=== PATIENT | female | born 1970 | race Caucasian/White ===

== ENCOUNTER 2016-10-30 06:07 | Emergency (ER) | payer OTHER ==
[~2016-10-30] VITALS: Ht 162.6 cm; Wt 70.2 kg
[~2016-10-30 06:07] MED LIST: ABILIFY5 MG PO; ADDERALL XR 2020 MG PO; ADDERALL20 MG PO; ALEVE220 MG PO; ALPRAZOLAM ER1 MG PO; AMBIEN5 MG PO; ATARAX,VISTARIL25 MG PO; Adderall PO; Ambien PO; Atarax,Vistaril PO; Augmentin PO; BUSPAR10 MG PO; BUSPAR30 MG PO; Benadryl PO; Buspar PO; CELEXA20 MG PO; CELEXA40 MG PO; CLEOCIN300 MG PO; CLINDAMYCIN HC150 MG PO; CLINDAMYCIN HC300 MG PO; DAILY VALUE1 EACH PO; Diflucan PO; ENDOCET 5-3251 EACH PO; ESCITALOPRAM OX10 MG PO; HYDROCODON-ACE1 EAC7 PO; HYDROXYZINE PAM25 MG PO; Habitrol,Nicoderm CQ TD; KEFLEX250 MG; KENALOG,ARISTOC15 G2 TP; KLONOPIN0.5 M1 PO; KLONOPIN1 MG PO; Kenalog 0.1% Cream TP; Levaquin PO; Lexapro PO; METHADONE; METHADONE10 MG/1 M1 PO; Methadone HCl PO; NAPROSYN500 MG PO; PROBIOTIC1 EAC1 PO; PROTONIX40 MG PO; SUBOXONE 8 M1 TABLET PO; THORAZINE50 MG PO; TYLENOL EXTRA500 MG PO; VENTOLIN HFA18 GM IH; VICODIN 5-3001 EACH PO; VISTARIL50 M1 PO; VITAMIN D32000 UNI1 PO; XANAX XR1 MG PO; Xanax PO; ZOLPIDEM TARTRAT5 MG; ZOLPIDEM TARTRAT5 MG PO; methadone PO
[2016-10-30 07:00] LABS: EOSINOPHIL (%) 0 % (0-5); HEMATOCRIT 42.5 % (36.0-46.0); IMMATURE GRANULOCYTE (%) 1.3 % (0.0-0.7); IMMATURE GRANULOCYTE COUNT 0.2 K/uL; INSTRUMENT ABS NEUTROPHIL CT 12.2 K/uL; LYMPHOCYTE COUNT 0.7 K/uL (1.0-2.8); MCH 30.1 PG (29.0-34.0); MCHC 34.1 G/DL (30.0-36.0); MCV 88.2 FL (83-99); MEAN PLAT.VOLUME 10.1 uM^3 (9.5-12.4); MONOCYTE (%) 5.7 % (3-12); MONOCYTE COUNT 0.8 K/uL (0-0.8); NEUTROPHIL (%) 87.9 % (45-76); NEUTROPHIL COUNT 12.2 K/uL (1.8-6.4); PLATELET COUNT 175 K/uL (156-360); RBC DIS.WIDTH-CV 13.4 % (11.8-14.6); RBC DIS.WIDTH-SD 43.8 % (39-53); RED BLOOD COUNT 4.82 M/uL (3.80-5.20); WHITE BLOOD COUNT 13.9 K/uL (4.1-10.2)
[2016-10-30 07:20] LABS: ANION GAP 10 MEQ/L (2-14); CHLORIDE 102 MEQ/L (99-109); POTASSIUM 3.6 MEQ/L (3.7-5.4); SAMPLE HEMOLYSIS CHECK 0; SAMPLE ICTERIC CHECK 0; SAMPLE LIPEMIA CHECK 0; SODIUM 133 MEQ/L (136-147); TOTAL BILIRUBIN 1.6 MG/DL (0.0-1.0)
[2016-10-30 07:21] LABS: INTER. NORMALIZED RATIO 1.1; PROTHROMBIN TIME 11.1 (9.2-11.2)
[2016-10-30 07:26] LABS: ALKALINE PHOSPHATASE 47 IU/L (3-129); GFR ESTIMATE (CALCULATED) > 59 mL/min/; GLUCOSE 117 mg/dL (70-99); LIPASE 8 U/L (1.0-51.0); UREA NITROGEN (BUN) 9 mg/dL (9-23)
[2016-10-30 08:42] LABS: ADD MIUA? YES; BILIRUBIN NEGATIVE; BLOOD LARGE; COLOR YELLOW ((YELLOW)); GLUCOSE (STRIP) NEGATIVE; KETONES NEGATIVE; LEUKOCYTES MODERATE; NITRITE NEGATIVE; PROTEIN (STRIP) 30
[2016-10-30 08:49] LABS: BACTERIA NONE SEEN /HPF; EPITHELIAL CELLS 1+ /HPF; MUCUS NONE SEEN /LPF; RED BLOOD CELLS TNTC /HPF (0-5)
[2016-10-30 09:03] LABS: SPECIFIC GRAVITY 1.056 (1.000-1.030)
[2016-10-30] MEDS ORDERED: BENTYL20 MG PO (09:26)
[2016-10-30] MEDS ORDERED: KEFLEX500 MG PO (09:26)
[2016-10-30] MEDS ORDERED: ZOFRAN ODT4 MG PO (09:27)
[2016-10-30 09:48] VITALS: BP 113/70
== END 2016-10-30 10:06 | disposition home or self-care (01) ==
LOC: EME → EDBD 06:07 → EME 10:06
PROVIDERS: Emergency Medicine
DX: K52.9 Noninfective gastroenteritis and colitis, unspecified (principal); F32.9 Major depressive disorder, single episode, unspecified; Z88.1 Allergy status to other antibiotic agents; Z88.2 Allergy status to sulfonamides; Z91.040 Latex allergy status; F17.200 Nicotine dependence, unspecified, uncomplicated
CPT/HCPCS: 74177; 80053; 81003; 83690; 85025; 85610; 99281; 99285; J7030

== ENCOUNTER 2016-12-04 08:22 | Day surgery (SDC) | payer OTHER ==
[~2016-12-04] VITALS: Ht 165.1 cm; Wt 65.9 kg
[~2016-12-04 08:22] MED LIST changes: +BENTYL20 MG PO; +KEFLEX500 MG PO; +ZOFRAN ODT4 MG PO
[2016-12-04 09:13] VITALS: BP 101/68
[2016-12-04] MEDS ORDERED: PERCOCET 5/31 TABLET PO (11:06)
[2016-12-04 11:54] VITALS: BP 127/55
[2016-12-04 12:54] VITALS: BP 111/68
[2016-12-04 14:39] VITALS: BP 115/69
== END 2016-12-04 15:05 | disposition home or self-care (01) ==
LOC: SDC 08:22
PROC: 0FT44ZZ Resection of Gallbladder, Percutaneous Endoscopic Approach (ICD-10-PCS; principal; 2016-12-04)
DX: K80.10 Calculus of gallbladder with chronic cholecystitis without obstruction (principal); D13.5 Benign neoplasm of extrahepatic bile ducts; F41.8 Other specified anxiety disorders; R16.2 Hepatomegaly with splenomegaly, not elsewhere classified; F11.21 Opioid dependence, in remission; F17.210 Nicotine dependence, cigarettes, uncomplicated; Z86.19 Personal history of other infectious and parasitic diseases; Z85.41 Personal history of malignant neoplasm of cervix uteri; Z85.828 Personal history of other malignant neoplasm of skin; Z88.0 Allergy status to penicillin; Z82.49 Family history of ischemic heart disease and other diseases of the circulatory system; Z80.7 Family history of other malignant neoplasms of lymphoid, hematopoietic and related tissues
CPT/HCPCS: 87641; 88304; J0131; J0690; J1100; J1170; J2250; J2405; J2710; J2765; J3010

== ENCOUNTER 2017-06-03 06:52 | Emergency (ER) | payer OTHER ==
[~2017-06-03] VITALS: Ht 160 cm; Wt 74.6 kg
[~2017-06-03 06:52] MED LIST changes: +PERCOCET 5/31 TABLET PO
[2017-06-03 08:01] LABS: HEMATOCRIT 42.3 % (36.0-46.0); HEMOGLOBIN 14.3 G/DL (11.9-15.5); MCH 30.4 PG (29.0-34.0); MCHC 33.8 G/DL (30.0-36.0); PLATELET COUNT 163 K/uL (156-360); RBC DIS.WIDTH-CV 13.7 % (11.8-14.6); RBC DIS.WIDTH-SD 45.3 % (39-53); WHITE BLOOD COUNT 4.2 K/uL (4.1-10.2)
[2017-06-03 08:19] LABS: ALBUMIN 3.8 g/dL (3.2-4.8)
[2017-06-03 08:20] LABS: CHLORIDE 106 mEq/L (99-109); POTASSIUM 4.4 mEq/L (3.7-5.4); SODIUM 136 mEq/L (136-147)
[2017-06-03 08:22] LABS: GLUCOSE 99 mg/dL (70-99); TOTAL PROTEIN 7.6 g/dL (6.4-8.3)
[2017-06-03 08:25] LABS: ALKALINE PHOSPHATASE 47 IU/L (3-129); QUANTITATIVE HCG < 4.0 MIU/ML
[2017-06-03 08:26] LABS: CREATININE 0.8 mg/dL (0.6-1.3); GFR ESTIMATE (CALCULATED) > 59 mL/min/
[2017-06-03 08:27] LABS: AST (GOT) 33 IU/L (2-34); UREA NITROGEN (BUN) 18 mg/dL (9-23)
[2017-06-03 08:28] LABS: ALT (GPT) 33 IU/L (3-49)
[2017-06-03 08:30] LABS: BILIRUBIN NEGATIVE; BLOOD NEGATIVE; COLOR YELLOW ((YELLOW)); GLUCOSE (STRIP) NEGATIVE; KETONES NEGATIVE; LEUKOCYTES NEGATIVE; NITRITE NEGATIVE; PROTEIN (STRIP) NEGATIVE; SPECIFIC GRAVITY 1.025 (1.000-1.030)
[2017-06-03 08:31] LABS: APPEARANCE CLEAR ((CLEAR)); UCUL ADDED? NO
[2017-06-03 08:52] LABS: TOTAL BILIRUBIN 0.3 mg/dL (0.0-1.0)
[2017-06-03 08:56] LABS: LIPASE 48 U/L (1.0-51.0)
[2017-06-03] MEDS ORDERED: ZOFRAN ODT4 MG PO (09:42)
[2017-06-03] MEDS ORDERED: STOOL SOFTENER250 MG PO (09:45)
[2017-06-03 10:17] VITALS: BP 99/54
== END 2017-06-03 10:17 | disposition home or self-care (01) ==
LOC: EME 06:52
DX: R11.2 Nausea with vomiting, unspecified (principal); K42.9 Umbilical hernia without obstruction or gangrene; Z90.49 Acquired absence of other specified parts of digestive tract; Z86.14 Personal history of Methicillin resistant Staphylococcus aureus infection; F17.200 Nicotine dependence, unspecified, uncomplicated
CPT/HCPCS: 76705; 80053; 81003; 83690; 84702; 85027; 99281; 99283

== ENCOUNTER → 2017-06-24 | Outpatient (CLI) | payer OTHER ==
[~2017-06-24] MED LIST changes: +STOOL SOFTENER250 MG PO
== END | disposition home or self-care (01) ==
LOC: CDC 13:41
DX: Z01.810 Encounter for preprocedural cardiovascular examination (principal); K43.9 Ventral hernia without obstruction or gangrene; R00.1 Bradycardia, unspecified
CPT/HCPCS: 93000

== ENCOUNTER 2017-06-25 11:02 | Day surgery (SDC) | payer OTHER ==
[~2017-06-25] VITALS: Ht 162.6 cm; Wt 75.8 kg
[2017-06-25 11:52] VITALS: BP 105/68
[2017-06-29] MEDS ORDERED: KEFLEX500 MG PO (16:27)
[2017-06-29] MEDS ORDERED: ZOFRAN4 MG PO (16:28)
== END 2017-06-25 12:30 | disposition home or self-care (01) ==
LOC: SDC
DX: K43.9 Ventral hernia without obstruction or gangrene (principal); Z53.09 Procedure and treatment not carried out because of other contraindication; R21 Rash and other nonspecific skin eruption; R07.9 Chest pain, unspecified
CPT/HCPCS: 87641; J1100; J2250; J2405; J3010

== ENCOUNTER 2017-06-30 11:38 | Day surgery (SDC) | payer OTHER ==
[~2017-06-30] VITALS: Ht 165.1 cm; Wt 80.5 kg
[~2017-06-30 11:38] MED LIST changes: +ZOFRAN4 MG PO
[2017-06-30 12:03] VITALS: BP 99/52
[2017-06-30] MEDS ORDERED: ULTRAM50 MG PO ×2 (13:57→14:00)
[2017-06-30 16:00] VITALS: BP 130/94
[2017-06-30 16:58] VITALS: BP 129/73
[2017-06-30 19:16] VITALS: BP 140/73
[2017-06-30 20:03] VITALS: BP 136/75
[2017-06-30 22:57] VITALS: BP 109/62
[2017-07-01 04:35] VITALS: BP 100/58
[2017-07-01 07:45] VITALS: BP 116/60
== END 2017-07-01 10:05 | disposition home or self-care (01) ==
LOC: SDC 11:38 → ENRESERV 18:57 → 2SOUTH 18:58 → ENRESERV 19:12 → 2EAST 19:35
PROC: 0WUF4JZ Supplement Abdominal Wall with Synthetic Substitute, Percutaneous Endoscopic Approach (ICD-10-PCS; principal; 2017-06-30)
DX: K42.0 Umbilical hernia with obstruction, without gangrene (principal); R11.0 Nausea; B18.2 Chronic viral hepatitis C; Z86.19 Personal history of other infectious and parasitic diseases; Z86.14 Personal history of Methicillin resistant Staphylococcus aureus infection; F17.200 Nicotine dependence, unspecified, uncomplicated; F11.20 Opioid dependence, uncomplicated; Z80.8 Family history of malignant neoplasm of other organs or systems; Z80.7 Family history of other malignant neoplasms of lymphoid, hematopoietic and related tissues; Z84.89 Family history of other specified conditions; Z88.1 Allergy status to other antibiotic agents; Z91.040 Latex allergy status
CPT/HCPCS: C1781; G0378; J0330; J0690; J1170; J1885; J2250; J2405; J3010

== ENCOUNTER → 2017-10-01 | Outpatient (CLI) | payer OTHER ==
[~2017-10-01] MED LIST changes: +ULTRAM50 MG PO
== END | disposition home or self-care (01) ==
LOC: RAD 12:26
DX: R76.11 Nonspecific reaction to tuberculin skin test without active tuberculosis (principal)
CPT/HCPCS: 71046

== ENCOUNTER 2017-11-23 12:49 | Emergency (ER) | payer OTHER ==
[~2017-11-23] VITALS: Ht 162.6 cm; Wt 69.6 kg
[2017-11-23 13:51] LABS: HEMATOCRIT 36.2 % (36.0-46.0); HEMOGLOBIN 12.8 G/DL (11.9-15.5); MCH 30.8 PG (29.0-34.0); MCHC 35.4 G/DL (30.0-36.0); PLATELET COUNT 163 K/uL (156-360); RBC DIS.WIDTH-SD 41.6 % (39-53); RED BLOOD COUNT 4.16 M/uL (3.80-5.20); WHITE BLOOD COUNT 5.4 K/uL (4.1-10.2)
[2017-11-23 13:58] LABS: ALBUMIN 3.9 g/dL (3.2-4.8); CHLORIDE 105 mEq/L (99-109); POTASSIUM 3.6 mEq/L (3.7-5.4); SODIUM 136 mEq/L (136-147)
[2017-11-23 14:00] LABS: GLUCOSE 120 mg/dL (70-99); TOTAL PROTEIN 7.8 g/dL (6.4-8.3)
[2017-11-23 14:02] LABS: TOTAL BILIRUBIN 0.6 mg/dL (0.0-1.0)
[2017-11-23 14:04] LABS: ALKALINE PHOSPHATASE 48 IU/L (3-129); CREATININE 0.8 mg/dL (0.6-1.3); GFR ESTIMATE (CALCULATED) > 59 mL/min/
[2017-11-23 14:05] LABS: UREA NITROGEN (BUN) 17 mg/dL (9-23)
[2017-11-23 14:06] LABS: AST (GOT) 56 IU/L (2-34)
[2017-11-23 14:07] LABS: ALT (GPT) 39 IU/L (3-49)
[2017-11-23 15:54] LABS: APPEARANCE SL.HAZY ((CLEAR)); BILIRUBIN NEGATIVE; BLOOD NEGATIVE; COLOR YELLOW ((YELLOW)); GLUCOSE (STRIP) NEGATIVE; KETONES NEGATIVE; LEUKOCYTES SMALL; NITRITE NEGATIVE; PROTEIN (STRIP) 30; SPECIFIC GRAVITY 1.021 (1.000-1.030)
[2017-11-23 16:03] LABS: BACTERIA RARE /HPF; CALCIUM OXALATE CRYSTALS 2+ /HPF; EPITHELIAL CELLS 1+ /HPF; MUCUS TRACE /LPF; RED BLOOD CELLS 0-5 /HPF (0-5); UCUL ADDED? NO; WHITE BLOOD CELLS 0-5 /HPF (0-5)
[2017-11-23 17:38] VITALS: BP 138/76
== END 2017-11-23 17:38 | disposition home or self-care (01) ==
LOC: EME 12:49
DX: L03.116 Cellulitis of left lower limb (principal); R59.0 Localized enlarged lymph nodes; F31.9 Bipolar disorder, unspecified; F32.9 Major depressive disorder, single episode, unspecified; F41.9 Anxiety disorder, unspecified; F11.20 Opioid dependence, uncomplicated; F17.200 Nicotine dependence, unspecified, uncomplicated; Z86.19 Personal history of other infectious and parasitic diseases; Z86.79 Personal history of other diseases of the circulatory system; Z86.14 Personal history of Methicillin resistant Staphylococcus aureus infection; Z94.5 Skin transplant status; Z98.890 Other specified postprocedural states; Z85.9 Personal history of malignant neoplasm, unspecified; Z90.49 Acquired absence of other specified parts of digestive tract; Z88.1 Allergy status to other antibiotic agents; Z91.010 Allergy to peanuts; Z91.040 Latex allergy status; Z88.2 Allergy status to sulfonamides
CPT/HCPCS: 80053; 81003; 85027; 93971; 99281; 99284; J0696

== ENCOUNTER 2018-01-22 19:43 | Emergency (ER) | payer OTHER ==
[~2018-01-22] VITALS: Ht 165.1 cm; Wt 78.2 kg
[2018-01-22 19:45] VITALS: BP 116/85
== END 2018-01-22 22:39 | disposition left against medical advice (07) ==
LOC: EME 19:43
DX: L02.01 Cutaneous abscess of face (principal); Z88.1 Allergy status to other antibiotic agents; Z88.2 Allergy status to sulfonamides; Z91.040 Latex allergy status; Z53.20 Procedure and treatment not carried out because of patient's decision for unspecified reasons